=== PATIENT | male | born 1985 | race Caucasian/White ===

== ENCOUNTER 2017-12-30 22:27 | Emergency (ER) | payer SELFPAY ==
[~2017-12-30] VITALS: Ht 170.2 cm; Wt 91.8 kg
[2017-12-30 22:30] VITALS: BP 132/94
[2017-12-30 23:24] VITALS: BP 132/94
== END 2017-12-31 00:05 | disposition left against medical advice (07) ==
LOC: MED 22:27
DX: H57.12 Ocular pain, left eye (principal); J34.89 Other specified disorders of nose and nasal sinuses; Z53.21 Procedure and treatment not carried out due to patient leaving prior to being seen by health care provider